=== PATIENT | male | born 1990 | race African-American/Black ===

== ENCOUNTER 2024-02-20 10:36 | Emergency (ER) | payer OTHER ==
[~2024-02-20] VITALS: Ht 177.8 cm; Wt 121.0 kg
[2024-02-20 10:45] VITALS: O2SAT 97
[2024-02-20 10:47] VITALS: BP 129/72; TEMP 98.2
[2024-02-20] MEDS: ALBUTEROL (0.083%) 2.5MG/3ML NEB HHN ONE (11:45)
[2024-02-20] MEDS: PREDNISONE 20MG TABLET PO ONE (11:57)
[2024-02-20] MEDS ORDERED: P50 MT (12:07)
[2024-02-20] MEDS ORDERED: ALBU18HF2 IH (12:07)
[2024-02-20 12:15] VITALS: PULSE 86; RESP 20; O2SAT 94
== END 2024-02-20 13:09 | disposition home or self-care (01) ==
LOC: ER 10:36
DX: R05.9 Cough, unspecified (principal); I10 Essential (primary) hypertension; E11.9 Type 2 diabetes mellitus without complications
CPT/HCPCS: 71045; 94640; 99283; J7512; Z7610 ×3